=== PATIENT | male | born 2000 | race Caucasian/White ===

== ENCOUNTER 2024-12-12 17:59 | Emergency (ER) | payer BC, MEDICAID ==
[~2024-12-12] VITALS: Ht 172.7 cm; Wt 57.0 kg
[2024-12-12] MEDS: LORAZEPAM 2MG/ML UD SYRINGE IM SCH (19:35)
[2024-12-12] MEDS: DIPHENHYDRAMINE 50MG/ML VIAL IM ONE (19:35)
[2024-12-12] MEDS: LORAZEPAM 2MG/ML INJ IM ONE (19:35)
[2024-12-12] MEDS: HALOPERIDOL LACTATE 5MG/ML VIAL IM ONE (19:35)
[2024-12-12 20:45] LABS: BASOPHILS % 0.4 % (0.0-2.0); EOSINOPHILS % 0.7 % (0.0-5.0); HEMATOCRIT. 46.1 % (42.0-52.0); HEMOGLOBIN. 15.2 g/dL (14.0-18.0); LYMPHOCYTES % 28.6 % (20.0-50.0); MEAN CORPUSCULAR HEMOGLOBIN 29.3 pg (28.0-32.0); MEAN CORPUSCULAR VOLUME 88.8 fL (80.0-94.0); MEAN PLATELET VOLUME 8.2 fl (7.4-10.4); MONOCYTES % 8.5 % (2.0-8.0); NEUTROPHILS % 61.8 % (40.0-76.0); PLATELET 277 x1000/uL (130-400); RED BLOOD CELL COUNT 5.19 mill/uL (4.7-6.1); RED CELL DISTRIBUTION WIDTH 14.5 % (11.6-14.6); WHITE BLOOD COUNT 8.1 x1000/uL (4.5-11.0)
[2024-12-12 20:51] LABS: CHLORIDE 105 mEq/L (98-107)
[2024-12-12 20:52] LABS: CARBON DIOXIDE 26 mEq/L (21-32); POTASSIUM 3.9 mEq/L (3.5-5.1); SODIUM 139 mEq/L (136-145)
[2024-12-12 20:53] LABS: CALCIUM 10.2 mg/dL (8.7-10.4)
[2024-12-12 20:58] LABS: ETHANOL BLOOD < 10 mg/dL (<10); GLUCOSE 108 mg/dL (70-105); UREA NITROGEN BLOOD 10 mg/dL (9-23)
[2024-12-12 20:59] LABS: AMMONIA < 17 uMol/L (<32)
[2024-12-12 21:00] LABS: ACETAMINOPHEN < 2 ug/mL (10-30)
[2024-12-13 00:31] LABS: CLARITY URINE CLEAR (CLEAR); COLOR URINE YELLOW (YELLOW); GLUCOSE URINE NEGATIVE (NEGATIVE); KETONES URINE NEGATIVE (NEGATIVE); LEUKOCYTE ESTERASE URINE NEGATIVE (NEGATIVE); NITRITE URINE NEGATIVE (NEGATIVE); OCCULT BLOOD URINE NEGATIVE (NEGATIVE); PROTEIN URINE NEGATIVE (NEGATIVE); UROBILINOGEN URINE 0.2 E.U./dL (0.2-1.0)
[2024-12-13 00:38] LABS: *AMPHETAMINES SCREEN URINE NEGATIVE (NEGATIVE); *BARBITURATES SCREEN URINE NEGATIVE (NEGATIVE); *BENZODIAZEPINES SCREEN URINE NEGATIVE (NEGATIVE); *COCAINE SCREEN URINE NEGATIVE (NEGATIVE); CANNABINOID URINE SCREEN PRESUMPTIVE POSITIVE (NEGATIVE); ECSTASY MDMA SCREEN URINE NEGATIVE (NEGATIVE); METHADONE URINE SCREEN NEGATIVE (NEGATIVE); OPIATES URINE SCREEN NEGATIVE (NEGATIVE); PHENCYCLIDINE URINE SCREEN NEGATIVE (NEGATIVE)
[2024-12-13] MEDS ORDERED: LORAZEPAM 2MG/ML INJ IM SCH (01:00)
[2024-12-13] MEDS ORDERED: LORAZEPAM 2MG/ML INJ IM ONE (01:00)
[2024-12-13] MEDS: LORAZEPAM 2MG/ML UD SYRINGE IM SCH (01:31)
[2024-12-13] MEDS: RISPERIDONE 0.5MG TABLET PO SCH (12:37)
[2024-12-13] MEDS: DIPHENHYDRAMINE 50MG/ML VIAL IM STA (14:20)
[2024-12-13] MEDS: HALOPERIDOL LACTATE 5MG/ML VIAL IM STA (14:20)
[2024-12-13 15:40] VITALS: TEMP 36.5; O2SAT 98
[2024-12-13 16:00] VITALS: BP 123/90; PULSE 76; RESP 16; TEMP 97.7; O2SAT 100
[2024-12-13] MEDS ORDERED: OLAN2.5T77 MT (16:05)
== END 2024-12-13 16:00 ==
LOC: ER 17:59 → EDBD 17:59 → ER 12-13 16:00
DX: R46.1 Bizarre personal appearance (principal); R41.0 Disorientation, unspecified; Z78.1 Physical restraint status; Z79.899 Other long term (current) drug therapy; Z59.00 Homelessness unspecified; Z20.822 Contact with and (suspected) exposure to COVID-19
CPT/HCPCS: 80048; 80307; 80329; 80320; 82140; 85025; 36415; 96372 ×2; 99291; 80305; 81003; 70450; 87426; J1200 ×2; J1630 ×2; J2060; Z7610 ×3; A4606; G0480